=== PATIENT | female | born 1930 | race Caucasian/White ===

== ENCOUNTER 2017-03-05 06:31 | Inpatient (IN) | payer OTHER ==
[~2017-03-05] VITALS: Ht 154.9 cm; Wt 69.4 kg
[~2017-03-05 06:31] MED LIST: ASPIRIN325 MG PO; COLACE100 MG PO; FERROUS SULFAT325 MG PO; HYDROCODON-ACE1 EAC7 PO; LASIX20 MG PO; LEVO-T100 MCG PO; MULTIVITAMIN1 EAC2 PO; TRIAMTERENE-HC1 EACH PO; TYLENOL ARTHRI650 MG PO
[2017-03-05 07:09] VITALS: BP 172/89
[2017-03-05 13:20] LABS: HEMATOCRIT 34.9 % (36.0-46.0); MCH 28.4 PG (29.0-34.0); MCHC 33.2 G/DL (30.0-36.0); MCV 85.5 FL (83-99); MEAN PLAT.VOLUME 10.3 uM^3 (9.5-12.4); RBC DIS.WIDTH-CV 13.4 % (11.8-14.6); RED BLOOD COUNT 4.08 M/uL (3.80-5.20); WHITE BLOOD COUNT 10.1 K/uL (4.1-10.2)
[2017-03-05 13:23] LABS: PLATELET COUNT 152 K/uL (156-360)
[2017-03-05 14:04] VITALS: BP 155/67
[2017-03-05 16:06] VITALS: BP 143/63
[2017-03-05 20:05] VITALS: BP 143/67
[2017-03-06 00:10] VITALS: BP 147/67
[2017-03-06 06:14] LABS: ANION GAP 9 MEQ/L (2-14); CHLORIDE 93 MEQ/L (99-109); GFR ESTIMATE (CALCULATED) > 59 mL/min/; GLUCOSE 139 mg/dL (70-99); POTASSIUM 3.8 MEQ/L (3.7-5.4); SAMPLE HEMOLYSIS CHECK 0; SAMPLE ICTERIC CHECK 0; SAMPLE LIPEMIA CHECK 0; SODIUM 131 MEQ/L (136-147); UREA NITROGEN (BUN) 10 mg/dL (9-23)
[2017-03-06 07:30] VITALS: BP 132/58
[2017-03-06 11:47] VITALS: BP 140/63
[2017-03-06 13:48] LABS: HEMATOCRIT 35.4 % (36.0-46.0); MCV 84.9 FL (83-99)
[2017-03-06 15:53] VITALS: BP 160/66
[2017-03-06 19:40] VITALS: BP 148/65
[2017-03-07 00:04] VITALS: BP 157/70
[2017-03-07 03:38] VITALS: BP 154/65
[2017-03-07 05:13] LABS: CHLORIDE 96 mEq/L (99-109); POTASSIUM 3.7 mEq/L (3.7-5.4); SODIUM 132 mEq/L (136-147)
[2017-03-07 05:15] LABS: GLUCOSE 117 mg/dL (70-99)
[2017-03-07 05:17] LABS: ANION GAP 6 MEQ/L (2-14)
[2017-03-07 05:19] LABS: GFR ESTIMATE (CALCULATED) > 59 mL/min/
[2017-03-07 05:20] LABS: UREA NITROGEN (BUN) 11 mg/dL (9-23)
[2017-03-07 08:29] VITALS: BP 170/74
[2017-03-07 12:06] VITALS: BP 163/70
[2017-03-07 15:03] VITALS: BP 141/63
[2017-03-07 19:45] VITALS: BP 135/61
[2017-03-08 00:12] VITALS: BP 162/69
[2017-03-08 05:34] LABS: HEMATOCRIT 32.4 % (36.0-46.0); MCV 87.3 FL (83-99)
[2017-03-08 08:31] VITALS: BP 152/58
[2017-03-08] MEDS ORDERED: FERROUS SULFAT325 MG PO (09:02)
[2017-03-08] MEDS ORDERED: ENDOCET 5-3251 EACH PO (09:04)
[2017-03-08] MEDS ORDERED: LOVENOX40 MG/0.4 SC (09:04)
[2017-03-08] MEDS ORDERED: CELECOXIB200 MG PO (09:04)
== END 2017-03-08 13:24 | DRG 470 ==
LOC: 3WEST 06:31 → 2SOUTH 06:31 → 3WEST 13:47 → 2SOUTH 16:04 → 3EAST 03-07 16:57
PROVIDERS: Orthopaedic Surgery; Physician Assistant
DX: M16.11 Unilateral primary osteoarthritis, right hip (principal); I10 Essential (primary) hypertension; E66.3 Overweight; Z68.28 Body mass index [BMI] 28.0-28.9, adult; M41.9 Scoliosis, unspecified; S81.801A Unspecified open wound, right lower leg, initial encounter; Y84.8 Other medical procedures as the cause of abnormal reaction of the patient, or of later complication, without mention of misadventure at the time of the procedure; Y92.239 Unspecified place in hospital as the place of occurrence of the external cause
CPT/HCPCS: 71010; 73502; 80048; 84295; 85014; 85018; 85027; 94799; 97530 GP; J0131; J0330; J0690; J1100; J1170; J1650; J2250; J2405; J2710; J3010; J7050

== ENCOUNTER 2017-09-10 12:43 | Inpatient (IN) | payer OTHER ==
[~2017-09-10] VITALS: Ht 154.9 cm; Wt 66.7 kg
[~2017-09-10 12:43] MED LIST changes: +CELECOXIB200 MG PO; +ENDOCET 5-3251 EACH PO; +LOVENOX40 MG/0.4 SC
[2017-09-10 13:45] LABS: CHLORIDE 94 mEq/L (99-109); POTASSIUM 3.1 mEq/L (3.7-5.4); SODIUM 132 mEq/L (136-147)
[2017-09-10 13:46] LABS: MAGNESIUM 1.6 mg/dL (1.3-2.7)
[2017-09-10 13:47] LABS: GLUCOSE 136 mg/dL (70-99)
[2017-09-10 13:48] LABS: ANION GAP 12 MEQ/L (2-14)
[2017-09-10 13:49] LABS: TOTAL BILIRUBIN 0.6 mg/dL (0.0-1.0)
[2017-09-10 13:50] LABS: BASOPHIL COUNT 0.1 K/uL (0-0.1); EOSINOPHIL (%) 1.4 % (0-5); EOSINOPHIL COUNT 0.2 K/uL (0-0.3); HEMATOCRIT 39.8 % (36.0-46.0); IMMATURE GRANULOCYTE (%) 1.2 % (0.0-0.7); IMMATURE GRANULOCYTE COUNT 0.1 K/uL; INSTRUMENT ABS NEUTROPHIL CT 8.7 K/uL; LYMPHOCYTE COUNT 1.5 K/uL (1.0-2.8); MCH 29.2 PG (29.0-34.0); MCHC 34.2 G/DL (30.0-36.0); MCV 85.6 FL (83-99); MEAN PLAT.VOLUME 9.9 uM^3 (9.5-12.4); MONOCYTE (%) 6.2 % (3-12); MONOCYTE COUNT 0.7 K/uL (0-0.8); NEUTROPHIL (%) 77.4 % (45-76); NEUTROPHIL COUNT 8.7 K/uL (1.8-6.4); PLATELET COUNT 159 K/uL (156-360); RBC DIS.WIDTH-CV 12.5 % (11.8-14.6); RBC DIS.WIDTH-SD 38.9 % (39-53); RED BLOOD COUNT 4.65 M/uL (3.80-5.20); WHITE BLOOD COUNT 11.2 K/uL (4.1-10.2)
[2017-09-10 13:51] LABS: ALKALINE PHOSPHATASE 120 IU/L (3-129); GFR ESTIMATE (CALCULATED) > 59 mL/min/
[2017-09-10 13:52] LABS: UREA NITROGEN (BUN) 13 mg/dL (9-23)
[2017-09-10 13:54] LABS: CREATINE KINASE 66 IU/L (1-294); LIPASE 12 U/L (1.0-51.0); TOTAL CK 66 IU/L (1-294)
[2017-09-10 13:56] LABS: TROP-I INTERPRETATION NEGATIVE; TROPONIN-I < 0.01 ng/mL (0.0-0.30)
[2017-09-10 14:00] LABS: CK-MB 1.5 ng/mL (0.0-4.9)
[2017-09-10] MEDS ORDERED: LITE COAT ASPI325 M1 PO (20:14)
[2017-09-10] MEDS ORDERED: LORTAB 5-325 M1 EACH PO (20:14)
[2017-09-11 01:31] VITALS: BP 200/89
[2017-09-11 06:59] LABS: EOSINOPHIL (%) 1.7 % (0-5); EOSINOPHIL COUNT 0.1 K/uL (0-0.3); HEMATOCRIT 41.1 % (36.0-46.0); IMMATURE GRANULOCYTE (%) 1.3 % (0.0-0.7); IMMATURE GRANULOCYTE COUNT 0.1 K/uL; INSTRUMENT ABS NEUTROPHIL CT 2.6 K/uL; LYMPHOCYTE COUNT 1.5 K/uL (1.0-2.8); MCH 28.8 PG (29.0-34.0); MCHC 33.6 G/DL (30.0-36.0); MCV 85.8 FL (83-99); MEAN PLAT.VOLUME 9.9 uM^3 (9.5-12.4); MONOCYTE (%) 10.2 % (3-12); MONOCYTE COUNT 0.5 K/uL (0-0.8); NEUTROPHIL (%) 55.2 % (45-76); NEUTROPHIL COUNT 2.6 K/uL (1.8-6.4); PLATELET COUNT 182 K/uL (156-360); RBC DIS.WIDTH-CV 12.7 % (11.8-14.6); RBC DIS.WIDTH-SD 39.6 % (39-53); RED BLOOD COUNT 4.79 M/uL (3.80-5.20); WHITE BLOOD COUNT 4.7 K/uL (4.1-10.2)
[2017-09-11 07:22] LABS: ALKALINE PHOSPHATASE 165 IU/L (3-129); ANION GAP 9 MEQ/L (2-14); CHLORIDE 97 MEQ/L (99-109); GFR ESTIMATE (CALCULATED) > 59 mL/min/; GLUCOSE 104 mg/dL (70-99); SAMPLE HEMOLYSIS CHECK 0; SAMPLE ICTERIC CHECK 0; SAMPLE LIPEMIA CHECK 0; SODIUM 133 MEQ/L (136-147); TOTAL BILIRUBIN 0.6 MG/DL (0.0-1.0); UREA NITROGEN (BUN) 13 mg/dL (9-23)
[2017-09-11 07:25] LABS: POTASSIUM 3.9 MEQ/L (3.7-5.4)
[2017-09-11 08:06] VITALS: BP 129/60
[2017-09-11 23:56] VITALS: BP 131/63
[2017-09-12 03:33] LABS: ADD MIUA? NO; BILIRUBIN NEGATIVE; BLOOD NEGATIVE; COLOR YELLOW ((YELLOW)); GLUCOSE (STRIP) NEGATIVE; KETONES 5; LEUKOCYTES NEGATIVE; NITRITE NEGATIVE; PROTEIN (STRIP) NEGATIVE; SPECIFIC GRAVITY 1.019 (1.000-1.030); UCUL ADDED? NO; UROBILINOGEN 0.2 MG/DL (0.2-1.0)
[2017-09-12 06:24] LABS: HEMATOCRIT 39.1 % (36.0-46.0); MCH 28.6 PG (29.0-34.0); MCHC 33.2 G/DL (30.0-36.0); MCV 85.9 FL (83-99); PLATELET COUNT 155 K/uL (156-360); RED BLOOD COUNT 4.55 M/uL (3.80-5.20); WHITE BLOOD COUNT 9.3 K/uL (4.1-10.2)
[2017-09-12 07:06] LABS: ALKALINE PHOSPHATASE 127 IU/L (3-129); ANION GAP 9 MEQ/L (2-14); CHLORIDE 96 MEQ/L (99-109); GFR ESTIMATE (CALCULATED) > 59 mL/min/; GLUCOSE 124 mg/dL (70-99); POTASSIUM 3.5 MEQ/L (3.7-5.4); SAMPLE HEMOLYSIS CHECK 0; SAMPLE ICTERIC CHECK 0; SAMPLE LIPEMIA CHECK 0; SODIUM 134 MEQ/L (136-147); TOTAL BILIRUBIN 0.7 MG/DL (0.0-1.0); UREA NITROGEN (BUN) 16 mg/dL (9-23)
[2017-09-12 07:42] VITALS: BP 144/66
[2017-09-12 15:54] VITALS: BP 162/71
[2017-09-13 00:03] VITALS: BP 169/72
[2017-09-13 06:09] LABS: EOSINOPHIL (%) 2.1 % (0-5); EOSINOPHIL COUNT 0.1 K/uL (0-0.3); HEMATOCRIT 39.1 % (36.0-46.0); IMMATURE GRANULOCYTE (%) 0.8 % (0.0-0.7); IMMATURE GRANULOCYTE COUNT 0.1 K/uL; INSTRUMENT ABS NEUTROPHIL CT 4.3 K/uL; LYMPHOCYTE COUNT 1.5 K/uL (1.0-2.8); MCHC 33.2 G/DL (30.0-36.0); MCV 87.3 FL (83-99); MONOCYTE (%) 8.5 % (3-12); MONOCYTE COUNT 0.6 K/uL (0-0.8); NEUTROPHIL (%) 65.5 % (45-76); NEUTROPHIL COUNT 4.3 K/uL (1.8-6.4); PLATELET COUNT 138 K/uL (156-360); RBC DIS.WIDTH-CV 12.9 % (11.8-14.6); RBC DIS.WIDTH-SD 40.7 % (39-53); RED BLOOD COUNT 4.48 M/uL (3.80-5.20); WHITE BLOOD COUNT 6.6 K/uL (4.1-10.2)
[2017-09-13 06:38] LABS: ALKALINE PHOSPHATASE 116 IU/L (3-129); ANION GAP 7 MEQ/L (2-14); CHLORIDE 100 MEQ/L (99-109); GFR ESTIMATE (CALCULATED) > 59 mL/min/; GLUCOSE 105 mg/dL (70-99); SAMPLE HEMOLYSIS CHECK 0; SAMPLE ICTERIC CHECK 0; SAMPLE LIPEMIA CHECK 0; SODIUM 135 MEQ/L (136-147); UREA NITROGEN (BUN) 10 mg/dL (9-23)
[2017-09-13 06:41] LABS: TOTAL BILIRUBIN 0.5 MG/DL (0.0-1.0)
[2017-09-13 09:34] VITALS: BP 183/77
[2017-09-13] MEDS ORDERED: AMLODIPINE BESY10 MG PO (13:36)
[2017-09-13 16:20] VITALS: BP 142/65
== END 2017-09-13 18:59 | disposition home or self-care (01) | DRG 446 ==
LOC: EME 12:43 → 5EAST 22:34 → EDOF 22:34 → ENRESERV 22:36 → 5EAST 23:53
PROVIDERS: Emergency Medicine; Hospitalist; Internal Medicine; Internal Medicine Gastroenterology
PROC: 0FC98ZZ Extirpation of Matter from Common Bile Duct, Via Natural or Artificial Opening Endoscopic (ICD-10-PCS; principal; 2017-09-11)
DX: K80.51 Calculus of bile duct without cholangitis or cholecystitis with obstruction (principal); K57.10 Diverticulosis of small intestine without perforation or abscess without bleeding; E86.0 Dehydration; E87.6 Hypokalemia; G89.29 Other chronic pain; I10 Essential (primary) hypertension; E03.9 Hypothyroidism, unspecified; M48.00 Spinal stenosis, site unspecified; M41.9 Scoliosis, unspecified; I87.2 Venous insufficiency (chronic) (peripheral); Z66 Do not resuscitate; Z96.641 Presence of right artificial hip joint; Z85.828 Personal history of other malignant neoplasm of skin; Z86.718 Personal history of other venous thrombosis and embolism; Z79.82 Long term (current) use of aspirin
CPT/HCPCS: 71010; 74174; 74328; 80053; 81003; 82550; 82553; 83605; 83690; 83735; 84484; 85025; 85027; 87081; 93005; 99281; 99285; C1757; C1769; J0330; J0360; J1644; J2250; J2270; J2405; J3010; J7030; J7040

== ENCOUNTER 2018-03-01 19:28 | Inpatient (IN) | payer OTHER ==
[~2018-03-01] VITALS: Ht 162.6 cm; Wt 71.2 kg
[~2018-03-01 19:28] MED LIST changes: +AMLODIPINE BESY10 MG PO; -LEVO-T100 MCG PO; +LITE COAT ASPI325 M1 PO; +LORTAB 7.5-3251 EACH PO; +SYNTHROID100 MCG PO
[2018-03-01 20:03] LABS: BASOPHIL (%) 0.4 % (0-1); EOSINOPHIL (%) 0.8 % (0-5); EOSINOPHIL COUNT 0.1 K/uL (0-0.3); HEMATOCRIT 46.7 % (36.0-46.0); IMMATURE GRANULOCYTE (%) 0.6 % (0.0-0.7); LYMPHOCYTE (%) 7.4 % (15-42); LYMPHOCYTE COUNT 0.6 K/uL (1.0-2.8); MCH 29.1 PG (29.0-34.0); MCHC 34.3 G/DL (30.0-36.0); MCV 85.1 FL (83-99); MONOCYTE (%) 3.4 % (3-12); MONOCYTE COUNT 0.3 K/uL (0-0.8); NEUTROPHIL (%) 87.4 % (45-76); NEUTROPHIL COUNT 7.5 K/uL (1.8-6.4); PLATELET COUNT 154 K/uL (156-360); RBC DIS.WIDTH-SD 40.6 % (39-53); RED BLOOD COUNT 5.49 M/uL (3.80-5.20); WHITE BLOOD COUNT 8.6 K/uL (4.1-10.2)
[2018-03-01 20:11] LABS: ALBUMIN 4.1 g/dL (3.2-4.8)
[2018-03-01 20:12] LABS: CHLORIDE 101 mEq/L (99-109); POTASSIUM 4.2 mEq/L (3.7-5.4); SODIUM 140 mEq/L (136-147)
[2018-03-01 20:14] LABS: GLUCOSE 142 mg/dL (70-99); TOTAL PROTEIN 7.9 g/dL (6.4-8.3)
[2018-03-01 20:16] LABS: TOTAL BILIRUBIN 0.7 mg/dL (0.0-1.0)
[2018-03-01 20:17] LABS: ALKALINE PHOSPHATASE 119 IU/L (3-129)
[2018-03-01 20:18] LABS: CREATININE 0.8 mg/dL (0.6-1.3); GFR ESTIMATE (CALCULATED) > 59 mL/min/
[2018-03-01 20:19] LABS: AST (GOT) 20 IU/L (2-34); UREA NITROGEN (BUN) 20 mg/dL (9-23)
[2018-03-01 20:20] LABS: ALT (GPT) 15 IU/L (3-49)
[2018-03-01 20:21] LABS: LIPASE 9 U/L (1.0-51.0)
[2018-03-01 20:22] LABS: APPEARANCE CLEAR ((CLEAR)); BILIRUBIN NEGATIVE; BLOOD NEGATIVE; COLOR YELLOW ((YELLOW)); GLUCOSE (STRIP) NEGATIVE; KETONES NEGATIVE; LEUKOCYTES NEGATIVE; NITRITE NEGATIVE; PROTEIN (STRIP) NEGATIVE; SPECIFIC GRAVITY 1.016 (1.000-1.030); UCUL ADDED? NO; UROBILINOGEN 0.2 MG/DL (0.2-1.0)
[2018-03-01] MEDS ORDERED: NORVASC10 MG PO (22:43)
[2018-03-01] MEDS ORDERED: AMOXICILLIN500 MG PO (22:44)
[2018-03-01] MEDS ORDERED: MAGNESIUM400 M1 PO (22:44)
[2018-03-01] MEDS ORDERED: VITAMIN D31000 UNIT PO (22:44)
[2018-03-02] VITALS (7 sets, daily range): BP systolic 123–158; BP diastolic 59–68
[2018-03-03 07:20] LABS: EOSINOPHIL (%) 3.3 % (0-5); EOSINOPHIL COUNT 0.1 K/uL (0-0.3); HEMATOCRIT 40.6 % (36.0-46.0); LYMPHOCYTE (%) 44.4 % (15-42); LYMPHOCYTE COUNT 1.8 K/uL (1.0-2.8); MCH 28.3 PG (29.0-34.0); MCV 85.8 FL (83-99); MONOCYTE (%) 14.3 % (3-12); MONOCYTE COUNT 0.6 K/uL (0-0.8); NEUTROPHIL COUNT 1.4 K/uL (1.8-6.4); PLATELET COUNT 151 K/uL (156-360); RBC DIS.WIDTH-CV 12.9 % (11.8-14.6); RBC DIS.WIDTH-SD 40.6 % (39-53); RED BLOOD COUNT 4.73 M/uL (3.80-5.20)
[2018-03-03 07:22] LABS: HEMOGLOBIN 13.4 G/DL (11.9-15.5)
[2018-03-03 07:30] VITALS: BP 141/89
[2018-03-03 07:36] LABS: ALBUMIN 3.4 G/DL (3.2-4.8); ALKALINE PHOSPHATASE 78 IU/L (3-129); ALT (GPT) 13 IU/L (3-49); AMYLASE 33 IU/L (1-118); AST (GOT) 18 IU/L (2-34); CHLORIDE 104 MEQ/L (99-109); CREATININE 0.6 MG/DL (0.6-1.3); GFR ESTIMATE (CALCULATED) > 59 mL/min/; LIPASE 8 U/L (1.0-51.0); POTASSIUM 3.4 MEQ/L (3.7-5.4); SODIUM 143 MEQ/L (136-147); TOTAL BILIRUBIN 0.3 MG/DL (0.0-1.0); TOTAL PROTEIN 5.9 G/DL (6.4-8.3); UREA NITROGEN (BUN) 9 mg/dL (9-23)
[2018-03-03 07:46] LABS: GLUCOSE 98 mg/dL (70-99)
[2018-03-03 16:03] VITALS: BP 157/71
[2018-03-03 23:27] VITALS: BP 114/54
[2018-03-04 06:03] LABS: BASOPHIL (%) 0.8 % (0-1); EOSINOPHIL (%) 3.3 % (0-5); EOSINOPHIL COUNT 0.2 K/uL (0-0.3); HEMATOCRIT 41.4 % (36.0-46.0); IMMATURE GRANULOCYTE (%) 0.8 % (0.0-0.7); LYMPHOCYTE (%) 45.3 % (15-42); LYMPHOCYTE COUNT 2.2 K/uL (1.0-2.8); MCH 28.7 PG (29.0-34.0); MCHC 33.8 G/DL (30.0-36.0); MONOCYTE (%) 11.7 % (3-12); MONOCYTE COUNT 0.6 K/uL (0-0.8); NEUTROPHIL (%) 38.1 % (45-76); NEUTROPHIL COUNT 1.9 K/uL (1.8-6.4); PLATELET COUNT 148 K/uL (156-360); RBC DIS.WIDTH-CV 12.8 % (11.8-14.6); RBC DIS.WIDTH-SD 39.6 % (39-53); RED BLOOD COUNT 4.87 M/uL (3.80-5.20); WHITE BLOOD COUNT 4.9 K/uL (4.1-10.2)
[2018-03-04 07:20] LABS: ALBUMIN 3.4 G/DL (3.2-4.8); ALKALINE PHOSPHATASE 72 IU/L (3-129); ALT (GPT) 16 IU/L (3-49); AST (GOT) 20 IU/L (2-34); CHLORIDE 100 MEQ/L (99-109); CREATININE 0.6 MG/DL (0.6-1.3); GFR ESTIMATE (CALCULATED) > 59 mL/min/; GLUCOSE 88 mg/dL (70-99); POTASSIUM 2.9 MEQ/L (3.7-5.4); SODIUM 139 MEQ/L (136-147); TOTAL PROTEIN 6.2 G/DL (6.4-8.3); UREA NITROGEN (BUN) 10 mg/dL (9-23)
[2018-03-04 07:26] LABS: TOTAL BILIRUBIN 0.4 MG/DL (0.0-1.0)
[2018-03-04 07:27] VITALS: BP 136/65
[2018-03-04 16:29] VITALS: BP 150/69
[2018-03-04 23:26] VITALS: BP 142/66
[2018-03-05 05:06] VITALS: BP 158/90
[2018-03-05 06:06] VITALS: BP 145/78
[2018-03-05 08:30] VITALS: BP 137/63
[2018-03-05 09:31] LABS: CHLORIDE 102 MEQ/L (99-109); CREATININE 0.6 MG/DL (0.6-1.3); GFR ESTIMATE (CALCULATED) > 59 mL/min/; GLUCOSE 122 mg/dL (70-99); SODIUM 138 MEQ/L (136-147); UREA NITROGEN (BUN) 13 mg/dL (9-23)
[2018-03-05 09:39] LABS: POTASSIUM 4.5 MEQ/L (3.7-5.4)
[2018-03-05] MEDS ORDERED: TYLENOL REGULA325 MG PO (11:13)
[2018-03-05] MEDS ORDERED: ATORVASTATIN CA20 MG PO (11:16)
[2018-03-05 13:39] VITALS: BP 137/63
[2018-03-05 15:45] VITALS: BP 136/65
== END 2018-03-05 16:51 | disposition home or self-care (01) | DRG 445 ==
LOC: EME → EDBD 19:28 → EME 19:28 → EDOF 23:23 → 3EAST 23:23 → ENRESERV 23:35 → 3EAST 03-02 01:05
PROVIDERS: Emergency Medicine; Hospitalist; Internal Medicine; Physician Assistant Medical
DX: K80.50 Calculus of bile duct without cholangitis or cholecystitis without obstruction (principal); I10 Essential (primary) hypertension; E03.9 Hypothyroidism, unspecified; M48.00 Spinal stenosis, site unspecified; G89.29 Other chronic pain; M54.9 Dorsalgia, unspecified; K86.2 Cyst of pancreas; E78.5 Hyperlipidemia, unspecified; M41.9 Scoliosis, unspecified; Z96.649 Presence of unspecified artificial hip joint; R11.2 Nausea with vomiting, unspecified; Z66 Do not resuscitate; A08.4 Viral intestinal infection, unspecified; E87.6 Hypokalemia; Z79.82 Long term (current) use of aspirin; Z98.890 Other specified postprocedural states; Z79.899 Other long term (current) drug therapy; Z90.49 Acquired absence of other specified parts of digestive tract; Z82.49 Family history of ischemic heart disease and other diseases of the circulatory system; Z80.8 Family history of malignant neoplasm of other organs or systems
CPT/HCPCS: 71045; 74177; 74181; 80048; 80053; 81003; 82150; 83605; 83690; 85025; 87040; 93005; 99281; 99285; C9113; G0378; J0696; J1644; J1885; J2270; J2405; J7030; J7120